=== PATIENT | male | born 1960 | race Caucasian/White ===

== ENCOUNTER 2022-09-29 16:44 | Emergency (ER) | payer OTHER, MEDICAID ==
[~2022-09-29] VITALS: Ht 170.2 cm; Wt 92.3 kg
[2022-09-29 18:02] VITALS: BP 125/65
[2022-09-29] MEDS ORDERED: HYDROcodone/acetaminophen 10/325mg tab PO ONE (20:40)
[2022-09-29] MEDS ORDERED: ORPH100T4 PO ×3 (21:03→22:09)
[2022-09-29] MEDS ORDERED: HYDR-3973 PO ×3 (21:03→22:09)
== END 2022-09-29 21:22 | disposition home or self-care (01) ==
LOC: ER 16:44
DX: M79.672 Pain in left foot (principal); M79.89 Other specified soft tissue disorders
CPT/HCPCS: 73630; 99283; A6449

== ENCOUNTER 2025-04-28 08:35 | Day surgery (SDC) | payer MEDICAID ==
[~2025-04-28] VITALS: Ht 170.2 cm; Wt 94.6 kg
[2025-04-28] VITALS (8 sets, daily range): BP systolic 126–150; BP diastolic 69–91; PULSE 49–60; RESP 12–18; TEMP 97.1; O2SAT 95–98
[~2025-04-28 08:35] MED LIST: ATOR10TA70 PO; ESCI-8 PO; GABA300C PO; HYDR25TA4 PO; LIDOcaine 2% Viscous 15ml cup MM ONE; LISI40TA20 PO; NALT50TA5 PO; NAPR-1168 PO; PANT40TA54 PO; TIRZ2.5P SQ; ringers solution, lacted 1,000 ML IV SCH; simethicone 40mg/0.6ml oral drops 15ml ONE
--- NOTE | 2025-04-28 09:21 | ELECTROCARDIOGRAPH REPORT ---
[facility] Test Date: 2025-04-28 Test Time: 09:19:10 Pat Name: JOSE DEB Department: [facility] Patient ID: [facility]-[id number] Room: Gender: M Javascript Programmer: HERO : 1960 Requested By: SCOTT JACK Order Number: [id number] Reading MD: Dr. SARAH Mcdonald Measurements Intervals [place] Rate: 56 P: 60 WA: 217 QRS: 29 QRSD: 96 T: 37 QT: 445 QTc: 430 Interpretive Statements Sinus bradycardia Borderline prolonged [place] interval Electronically Signed On 04-28-2025 16:52:[address] SARAH Mcdonald Please click the below link to view image of tracing.
[2025-04-28] MEDS ORDERED: midazolam 1 mg/ML 2ml injection ONE (09:52)
[2025-04-28] MEDS ORDERED: fentaNYL/PF 50MCG/1 ML 2ML syringe ONE (09:52)
[2025-04-28] MEDS ORDERED: propofol inj 20 ML IV ONE (09:54)
== END 2025-04-28 11:14 | disposition home or self-care (01) ==
LOC: PAS 08:35
PROVIDERS: ATTEND Internal Medicine Gastroenterology
DX: R13.10 Dysphagia, unspecified (principal); K21.00 Gastro-esophageal reflux disease with esophagitis, without bleeding; K31.7 Polyp of stomach and duodenum; K31.89 Other diseases of stomach and duodenum; I10 Essential (primary) hypertension; E66.9 Obesity, unspecified; Z68.32 Body mass index [BMI] 32.0-32.9, adult
CPT/HCPCS: 43239; 93005; J2250; J2704; J3010; J7120; Z7512; A4615; A4620